=== PATIENT | female | born 1950 ===

== ENCOUNTER 2018-07-03 12:15 | Emergency (ER) | payer OTHER ==
[~2018-07-03] VITALS: Ht 160 cm; Wt 70.8 kg
[2018-07-03] MEDS ORDERED: ZOCOR5 MG PO (12:40)
== END 2018-07-03 16:42 | disposition home or self-care (01) ==
LOC: ER 12:15
DX: S42.211A Unspecified displaced fracture of surgical neck of right humerus, initial encounter for closed fracture (principal); W18.39XA Other fall on same level, initial encounter; Y93.89 Activity, other specified; Y92.098 Other place in other non-institutional residence as the place of occurrence of the external cause; Y99.8 Other external cause status